=== PATIENT | female | born 1985 | race Caucasian/White ===

== ENCOUNTER 2021-11-03 22:10 | Emergency (ER) | payer OTHER ==
[~2021-11-03 22:10] MED LIST: NAPROSYN500 MG PO; OMNICEF 300 MG300 MG PO
[2021-11-04] MEDS ORDERED: NORFLEX 100 MG100 MG PO (02:15)
[2021-11-04] MEDS ORDERED: IBUPROFEN600 MG PO (02:15)
== END 2021-11-04 02:31 | disposition home or self-care (01) ==
LOC: ER1 22:10
DX: S39.012A Strain of muscle, fascia and tendon of lower back, initial encounter (principal); S29.012A Strain of muscle and tendon of back wall of thorax, initial encounter; E11.9 Type 2 diabetes mellitus without complications; X50.9XXA Other and unspecified overexertion or strenuous movements or postures, initial encounter
CPT/HCPCS: 72128; 72131; 96372; 99283; J1885; J2360